=== PATIENT | male | born 2000 | race Caucasian/White ===

== ENCOUNTER 2021-08-16 17:57 | Emergency (ER) | payer OTHER ==
[2021-08-16] MEDS ORDERED: diphenhydrAMINE 25 MG CAPSULE PO STA (18:19)
[2021-08-16] MEDS ORDERED: predniSONE 20 MG TABLET PO STA (18:19)
--- NOTE | 2021-08-16 18:24 | ED Physician Documentation ---
History of Present Illness - Stated complaint Stated Complaint: ALLERGIC REACTION - Chief complaint Chief Complaint: Allergic Rx - History obtained from History obtained from: Patient - History of Present Illness Timing: Today Pain level max: 0 Pain level now: 0 - Additonal information Additional information: Patient is a 21-year-old male who was eating [employer] food tonight when he began to feel itchy and noticed a rash over his torso and arms. Took 12.5 mg of Benadryl prior to arrival. Has never had an allergic reaction before. No difficulty speaking or swallowing. No difficulty breathing. Nothing makes it better or worse. Review of Systems Constitutional: denies: Fever, Chills Cardiac: denies: Chest pain / pressure, Palpitations Respiratory: denies: Dyspnea, Cough, Wheezing GI: denies: Nausea, Vomiting, Diarrhea Skin: denies: Rash Musculoskeletal: denies: Neck pain, Back pain Neurologic: denies: Headache PD PAST MEDICAL HISTORY - Past Medical History Past Medical History: No - Past Surgical History Past Surgical History: No - Present Medications Home Medications: Ambulatory Orders Medication Instructions Recorded Confirmed predniSONE [Deltasone] 60 mg PO DAILY #9 tablet 08/16/21 - Allergies Allergies/Adverse Reactions: Allergies Allergy/AdvReac Type Severity Reaction Status Date / Time No Known Drug Allergies Allergy Verified 08/16/21 18:06 - Living Situation Living Situation: reports: With family Living Arrangement: reports: At home PD ED PE NORMAL - Vitals Vital signs reviewed: Yes - General General: Alert and oriented X 3, No acute distress, Well developed/nourished - HEENT HEENT: PERRL, Moist mucous membranes, Other (No stridor. No wheezing. Normal Oropharynx) - Neck Neck: Supple, no meningeal sign - Cardiac Cardiac: RRR, Strong equal pulses - Respiratory Respiratory: No respiratory distress, Clear bilaterally - Abdomen Abdomen: Soft, Non tender, Non distended - Derm Derm: Warm and dry, Other (Diffuse urticaria over the abdomen chest and upper arms.) - Neuro Neuro: Alert and oriented X 3 - Psych Psych: Normal mood, Normal affect Results - Vitals Vitals: Vital Signs - 24 hr 08/16/21 08/16/21 18:07 19:05 Temperature 36.8 C 36.5 C Heart Rate 85 54 L Respiratory 14 16 Rate Blood Pressure 145/89 H 136/87 H O2 Saturation 100 97 Oxygen O2 Source Room air PD MEDICAL DECISION MAKING - ED course Complexity details: re-evaluated patient, considered differential, d/w patient ED course: Patient was given Benadryl and prednisone here. Rash significantly decreased. No difficulty speaking or swallowing. No respiratory difficulties. No wheezing. No stridor. Will place on prednisone for home and have him follow-up with his doctor for further care. Patient counseled regarding signs and symptoms for which I believe and urgent re-evaluation would be necessary. Patient with good understanding of and agreement to plan and is comfortable going home at this time This document was made in part using voice recognition software. While efforts are made to proofread this document, sound alike and grammatical errors may occur. Departure - Departure Disposition: Home, Self Care Clinical Impression: Allergic reaction Qualifiers: Encounter type: initial encounter Qualified Code(s): T78.40XA - Allergy, unspecified, initial encounter Condition: Good Instructions: ED Allergic Reaction General Other Follow-Up: Provider,Other [Primary Care Provider] - Within 1 week Prescriptions: predniSONE [Deltasone] 60 mg PO DAILY #9 tablet Comments: Take all steroids until gone. You can also use Benadryl, Zyrtec or Claritin at home. Return if you worsen. The cause of your reaction is unclear, but appears to be something that was in the food you ate tonight. Your doctor can order allergy testing for you. Your prescriptions were sent to [facility] in [place] Discharge Date/Time: 08/16/21 19:15
[2021-08-16 19:14] VITALS: BP 136/87
== END 2021-08-16 19:15 | disposition home or self-care (01) ==
LOC: ED 17:57
DX: T78.40XA Allergy, unspecified, initial encounter (principal)
CPT/HCPCS: 99282; A9270; J7512